=== PATIENT | female | born 1995 | race Caucasian/White ===

== ENCOUNTER 2018-09-09 08:29 | Emergency (ER) | payer SELFPAY ==
[~2018-09-09] VITALS: Ht 162.6 cm; Wt 56.4 kg
[2018-09-09 09:23] VITALS: BP 109/53
== END 2018-09-09 09:24 | disposition home or self-care (01) ==
LOC: ER 08:29
DX: J02.9 Acute pharyngitis, unspecified (principal); Z88.8 Allergy status to other drugs, medicaments and biological substances
CPT/HCPCS: 99281